=== PATIENT | male | born 2000 | race Caucasian/White ===

== ENCOUNTER 2023-02-28 14:16 | Emergency (ER) | payer BC, MEDICAID ==
[~2023-02-28] VITALS: Ht 182.9 cm; Wt 75.4 kg
[2023-02-28 14:24] VITALS: BP 125/61; PULSE 69; RESP 19; TEMP 98.2; O2SAT 97
[2023-02-28] MEDS ORDERED: [UNRECOGNIZED DRUG - CODE] PO (14:46)
[2023-02-28] MEDS ORDERED: ESCI10TA PO (14:46)
[2023-02-28] MEDS ORDERED: LURA40TA1 PO (14:46)
== END 2023-02-28 14:58 | disposition home or self-care (01) ==
LOC: EDBD 14:16 → MED 14:16
DX: F31.9 Bipolar disorder, unspecified (principal); Z76.0 Encounter for issue of repeat prescription; Z79.899 Other long term (current) drug therapy
CPT/HCPCS: 99281

== ENCOUNTER 2023-03-30 10:27 | Emergency (ER) | payer BC, MEDICAID ==
[~2023-03-30] VITALS: Ht 182.9 cm; Wt 72.6 kg
[~2023-03-30 10:27] MED LIST: ESCI10TA PO; LURA40TA1 PO; [UNRECOGNIZED DRUG - CODE] PO
[2023-03-30 11:11] VITALS: BP 112/64; PULSE 59; RESP 15; TEMP 98.2; O2SAT 98
[2023-03-30] MEDS ORDERED: ESCI10TA PO (12:29)
[2023-03-30] MEDS ORDERED: [UNRECOGNIZED DRUG - CODE] PO (12:29)
[2023-03-30] MEDS ORDERED: LURA40TA1 PO (12:29)
[2023-03-30 12:34] VITALS: BP 112/64; PULSE 62; RESP 15; TEMP 98.2; O2SAT 98
== END 2023-03-30 12:34 | disposition home or self-care (01) ==
LOC: MED 10:27
DX: F31.9 Bipolar disorder, unspecified (principal); Z76.0 Encounter for issue of repeat prescription; Z79.899 Other long term (current) drug therapy
CPT/HCPCS: 99281